=== PATIENT | female | born 1970 | race African-American/Black ===

== ENCOUNTER 2016-11-04 11:34 | Emergency (ER) | payer MEDICAID ==
[~2016-11-04] VITALS: Ht 170.2 cm; Wt 95.0 kg
[2016-11-04] MEDS ORDERED: IBUPROFEN 800MG TABLET PO ONE (12:15)
[2016-11-04] MEDS ORDERED: ACETAMINOPHEN WITH CODEINE 300/30MG TABLET PO ONE (15:30)
[2016-11-04 16:19] VITALS: BP 134/74
== END 2016-11-04 16:20 | disposition home or self-care (01) ==
LOC: ER 11:55
DX: M25.522 Pain in left elbow (principal); E11.9 Type 2 diabetes mellitus without complications; W01.0XXA Fall on same level from slipping, tripping and stumbling without subsequent striking against object, initial encounter; Y93.89 Activity, other specified; Y92.512 Supermarket, store or market as the place of occurrence of the external cause
CPT/HCPCS: 73080; 73110; 99284; A4565